=== PATIENT | male | born 1950 | race Caucasian/White ===

== ENCOUNTER 2022-03-11 02:21 | Emergency (ER) | payer MEDICARE, SELFPAY ==
[2022-03-11 02:44] VITALS: BP 131/73; PULSE 86; TEMP 36.6; O2SAT 96; BMI 30.1
--- NOTE | 2022-03-11 03:14 | ED_ITS ---
HPI - Neck Pain/Injury General Chief Complaint: Neck Injury/Pain Stated Complaint: neck pain Time Seen by Provider: 03/11/22 03:03 History of Present Illness HPI Narrative: 71-year-old man here with recent cough and cold symptoms with intense coughing episodes. Now 3rd day of right-sided neck pain pretty severe at he shows at the occipital insertion. Seems to have begun is a little bit of twinge maybe it is just escalated from there. Has tried Tylenol without relief. Also various balm/creams. Hurts terribly to transition in try to get in or out of bed. No radiating symptoms. No difficulty swallowing. Just can not sleep now. Has been using hot/warm packs. 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 Related Data Home Medications Medication Instructions Recorded Confirmed allopurinol 300 mg tablet mg 03/11/22 amlodipine 5 mg tablet mg 03/11/22 losartan 100 mg tablet mg 03/11/22 Allergies Allergy/AdvReac Type Severity Reaction Status Date / Time No Known Drug Allergies Allergy Verified 03/11/22 02:49 Review of Systems Status of ROS: Reports: 6 or more systems reviewed and unremarkable except as noted in History and below PFSH PFS Social History Smoking Status: Never smoker Do you use any of these nicotine containing products: None Second hand tobacco smoke exposure: No How often do you have a drink containing alcohol: 4 or more times a week How many standard drinks containing alcohol do you have on a typical day: 5 or 6 How often do you have six or more drinks on one occasion: Weekly AUDIT-C Alcohol total score: 9 Non-prescribed substance use: denies use Exam Narrative: Exam Narrative: Pleasant. Mildly distressed in apparent discomfort. Smells of menthol. Hard of hearing. Generally tremulous. Rather restricted rotation to the right of his neck --clearly causes pain in this direction. Improved rotation to about 70? to the left. Good strength in upper extremities. Intact sensation. No stridor. No apparent difficulty swallowing. Sore to palpation particularly in the right paracervical musculature and increasingly so toward the occipital insertion. No midline tenderness. No deformity appreciated Const: Vital Signs, click to edit/add: Vital Signs - 24 hr 03/11/22 02:44 03/11/22 03:43 Temperature 97.9 F Pulse Rate [Left P ulse Oximeter] 86 89 Blood Pressure [Ri ght Upper Arm] 131/73 115/74 Pulse Oximetry 96 96 Oxygen Delivery Me thod Room Air Room Air Documenting provider has reviewed patient's vital signs: yes Course Course Hospital Course: Suspect osteoarthritic related inflammation resultant muscle spasm/pain. I did offer localized injection with bupivacaine which he accepted. Discussed risks and benefits. He decided to proceed. Cleansed the area with alcohol and injected into sites in the upper paracervical musculature 1 just below the occipital insertion another an inch and a half below that. Did start to have some improvement very shortly in rotation and decreased discomfort -- I expect this will improve further though admittedly likely a temporary solution. Also offered a soft collar which he declined. Vital Signs Vital signs: Initial Vital Signs Temperature 97.9 F 03/11/22 02:44 Temperature Source Temporal Artery Scan 03/11/22 02:44 Pulse Rate 86 03/11/22 02:44 Blood Pressure 131/73 03/11/22 02:44 Blood Pressure Mean 92 03/11/22 02:44 Blood Pressure Position Supine 03/11/22 02:44 Pulse Oximetry 96 03/11/22 02:44 Oxygen Delivery Method 03/11/22 02:44 Vital Signs Temperature 97.9 F 03/11/22 02:44 Pulse Rate 86 03/11/22 02:44 Blood Pressure 131/73 03/11/22 02:44 Pulse Oximetry 96 03/11/22 02:44 Oxygen Delivery Method 03/11/22 02:44 Temperature 97.9 F 03/11/22 02:44 Pulse Rate 89 03/11/22 03:43 Blood Pressure 115/74 03/11/22 03:43 Pulse Oximetry 96 03/11/22 03:43 Oxygen Delivery Method 03/11/22 03:43 Discharge Plan Discharge Clinical Impression: Cervicalgia Patient Disposition: Home w/ Parent or Adult Condition: Improved Additional Instructions: Using some sort of supportive role around your neck can be helpful. Might try gentle pull-down stretching of your neck. Consider making appointment to have care by physical therapy or maybe a chiropractor though would avoid large cracking or manipulation of your neck. You may consider an appointment with a doctor of osteopathy, . [facility] has 2 of them who last I heard do manipulation as well; doctors Judy and Baljit. Temporarily and maybe with a little food can take up to 800 mg of ibuprofen per dose or alternatively up to 500 mg of naproxen 2 times daily. Either may be combined with any of the medications I prescribed today. [place], prednisone, Flexeril from [facility]. I would take 2 tabs of [place] with this 1st dosing and combine that with ibuprofen Take the prednisone as 60 mg daily for 2 days then 40 mg daily for 4 days then 20 mg daily for 3 days. (I also recommended addition of cold packs given newness of injury) Prescriptions: No Action amlodipine 5 mg tablet Label Comments: TAKE 1 TABLET (5 MG) BY MOUTH ONCE DAILY. allopurinol 300 mg tablet Label Comments: TAKE ONE TABLET BY MOUTH EVERY OTHER DAY losartan 100 mg tablet Label Comments: TAKE 1 TABLET (100 MG) BY MOUTH ONCE DAILY. Follow Up/Referrals: Micheal Kelly MD [Primary Care Provider] - Stand Alone Forms: [employer] Info Instructions
[2022-03-11] MEDS: BUPIVACAINE 0.25% 30 ML INJECTION (03:24)
--- OUTSIDE RECORDS SUMMARY | 2022-03-11 03:39 | XMS_ITS | Clinical Summary ---
:1950 Author Organization [facility] [place] [address] Care Team Providers Name Role Phone Micheal Kelly MD Primary Care Provider [phone] Allergies Active Allergy Reactions Severity Noted Date Comments Indomethacin Dizziness 09/25/2011 Medications Medication Sig Dispensed Refills Start Date End Date Status allopurinoL (ZYLOPRIM) Take 1 Tablet 45 Tablet 3 01/02/2022 Active 300 mg (300 mg) by tabletIndications: mouth every 48 Idiopathic gout, hours. unspecified chronicity, unspecified site amLODIPine (NORVASC) 5 Take 1 Tablet 90 Tablet 3 01/02/2022 Active mg tabletIndications: (5 mg) by Essential hypertension mouth once daily. losartan (COZAAR) 100 Take 1 Tablet 90 Tablet 3 01/02/2022 Active mg tabletIndications: (100 mg) by Essential hypertension mouth once daily. melatonin 5 mg Chew by mouth 0 01/02/2022 Active chewIndications: Other at bedtime if insomnia needed (insomnia). bismuth subsalicylate Chew 2 Tablets 0 01/02/2022 Active 262 mg chewable by mouth every (Pepto-BismoL) 262 mg 6 hours if chewable needed tabletIndications: (reflux). Gastroesophageal reflux disease, unspecified whether esophagitis present azithromycin (Zithromax Two tablets 6 Tablet 0 03/05/202210/2021 Z-Feliciano) 250 mg the first day, tabletIndications: one daily days Acute cough 2-5 Active Problems Problem Noted Date Fatty liver 01/02/2022 Mixed hyperlipidemia 01/02/2022 Idiopathic gout 01/01/2021 Premature atrial contractions 01/01/2021 Rotator cuff syndrome, right 02/09/2020 Overview: February 2020: MRI showing RC high grade Tear and other findings. Trying physical therapy. Did subacromial bursa injection. Abnormal liver enzymes 09/29/2019 Fever of unknown origin 01/08/2013 Obesity, Unspecified 02/03/2008 Right tib-fib fracture in 78' and Osteoarthrosis 10/20 History of gout 12/04/1999 Esophageal reflux Essential hypertension Resolved Problems Problem Noted Date Resolved Date Fatty liver 09/29/2019 01/02/2022 Chronic osteomyelitis of right tibia 08/09/201505/2021 Overview: 2014 Encounters Date Type Specialty Care Team Description 03/05/2022 Office Visit Dayne Dang, Cough (Congested, fatigue, chest tightness , ear discomfort, x 1 week) 03/05/2022 Travel 01/03/2022 Telephone Micheal Kelly Resul ts MD 01/02/2022 Office Visit Micheal Kelly, Medic are ANNUAL MD (subsequent) Vi sit 01/02/2022 Travel from Last 3 Months Immunizations Name Administration Dates Next Due COVID-19 vaccine (Moderna 100mcg/0.5mL) 03/07/2021 PF, MDV Influenza, High-dose Quadrivalent 02/08/2022, 01/30/2021, Inactivated Influenza, IIV3 (Age >=3 years) 03/03/1992 Influenza, Inactivated IIV3 (Age 65+ 01/18/2020 Years) Preserv Free Pneumococcal Poly,23-Valent (Pneumovax) 01/01/2021, 02/27/19 93 Pneumococcal conj 13-Valent (Prevnar 13) 12/30/2017 Tdap 01/17/2020, 12/13/2009 Zoster (Shingrix-RZV, recombinant) 06/26/2018, 12/30/2017 Zoster (Zostavax-ZVL, live) 11/28/2016 Family History Medical History Relation Name Comments Other Brother Crohn's Cancer-prostate Father Good Health Mother b 1930 Heart Disease Paternal Grandfather Thyroid Disease Sister Thyroidectomy Relation Name Status Comments Brother Father Alive Mother Alive Paternal Grandfather Sister Social History Tobacco Use Types Packs/Day Years Used Date Former Smoker Quit: 05/05/18 87 Smokeless Tobacco: Never Used Tobacco Cessation: Counseling Given: Yes Comments: quit smoking 28 years ago Alcohol Use Standard Drinks/Week Comments Not Currently 2.5 (1 standard drink = 0.6 oz pure drin ks 5 shots of liquor daily alcohol) Alcohol Habits Answer Date Recorded How often do you have a drink containing 4 or more times a w tangirnaq 09/20/2019 alcohol? How many drinks containing alcohol do 5 or 6 you have on a typical day when you are drinking? How often do you have six or more drinks Not asked on one occasion? Comment: drinks 5 shots of liquor daily 3 Sex Assigned at Date Recorded Not on file COVID-19 Exposure Response Date Recorded In the last 10 days, have you been in contact with No / Unsu re 03/05/2022 8:14 AM CDT someone who was confirmed or suspected to have Coronavirus/COVID-19? Obstetrics History Last Filed Vital Signs Vital Sign Reading Time Taken Comments Blood Pressure 92/63 03/05/2022 8:23 AM CDT Pulse 98 03/05/2022 8:23 AM CDT Temperature 36.8 ??C (98.3 ??F) 03/05/2022 8:23 AM CDT Respiratory Rate 16 11/07/2015 4:00 PM CDT Oxygen Saturation 99% 03/05/2022 8:23 AM CDT Inhaled Oxygen Concentration - - Weight 92.7 kg (204 lb 6.4 oz) 03/05/2022 8:23 AM CDT Height 177.8 cm (5' 10) 03/05/2022 8:23 AM CDT Body Mass Index 29.33 03/05/2022 8:23 AM CDT Plan of Treatment Upcoming Encounters Date Type Specialty Care Team Description 03/12/2022 Office Visit Siddhartha Prasad MD [address] [place], [place] [address] (Wo rk) Health Maintenance Due Date Last Done Comments Colonoscopy through age 75 1997 AAA screening age 55-77 10/28/2007 Medicare Wellness for age 65+ 01/02/2023 01/02/2022, 2020 BMI (ht and wt on same day) for 03/05/2023 03/05/2022, 12/05, age 18+ 01/26/2020, Additional history exists Depression screening for age 12+ 03/05/2023 03/05/2022, 05/2021, 01/02/2022, Additional history exists Lipids for age 45-75 01/02/2027 01/02/2022, 01/02/2022, 12/30/2017, Additional history exists Tetanus booster 01/16/2030 01/17/2020, 12/13/2009 Zoster (shingles) series for age Completed 06/26/2018, , 50+ 11/28/2016 Hepatitis C screening for age Completed 09/29/2019 18-79 Tdap Completed 01/17/2020, 12/13/2009 Pneumococcal series for age 65+ Completed 01/01/2021, 12/04, 02/27/1993 COVID-19 vaccine series Completed 02/08/2022, 03/07/2021, 08/09/2020, Additional history exists Influenza for age 65+ Completed 02/08/2022, 01/30/2021, 01/18/2020, Additional history exists Procedures Procedure Name Priority Date/Time Associated Diagnosis Comme nts VITAMIN B12 Routine 03/05/2022 9:37 AM Tremor Results f or this CDT procedure are i n the results section. COMP METABOLIC Routine 03/05/2022 9:37 AM Tremor Results for this PANEL CDT procedure are i n the results section. CBC W PLT NO DIFF Routine 03/05/2022 9:37 AM Tremor Resu lts for this CDT procedure are i n the results section. LDL Routine 01/02/2022 10:05 Mixed hyperlipidemia Res ults for this CHOLESTEROL,DIRECT AM CDT procedure are in the results section. LIPID PANEL W Routine 01/02/2022 10:05 Mixed hyperlipidemia Re sults for this REFLEX MEASURED AM CDT procedure ar e in LDL the results section. PSA TOTAL SCREEN Routine 01/02/2022 10:05 Screening PSA (prost ate Results for this AM CDT specific antigen) procedure are in the results section. GAMMA GT Routine 01/02/2022 10:05 Fatty liver Results for this AM CDT procedure are i n the results section. HEPATIC FUNCTION Routine 01/02/2022 10:05 Fatty liver Results for this PANEL AM CDT procedure are i n the results section. CBC W PLT NO DIFF Routine 01/02/2022 10:05 Idiopathic gout, Re sults for this AM CDT unspecified chronicity, proc edure are in unspecified site the results section. URIC ACID Routine 01/02/2022 10:05 Idiopathic gout, Results for this AM CDT unspecified chronicity, proc edure are in unspecified site the results section. BASIC METABOLIC Routine 01/02/2022 10:05 Essential hypertensio n Results for this PANEL AM CDT procedure are i n the results section. from Last 3 Months Results (ABNORMAL) CBC W PLT NO DIFF (03/05/2022 9:37 AM CDT)Only the most recent of2 resultswithin the time period is included. [facility] Method Time Signature WHITE BLOOD 6.3 4.5 - 11.0 03/05/2022 [facility] COUNT thou/cu mm 9:41 AM [facility] RED BLOOD COUNT 3.66 (L) 4.30 - 03/05/2022 [facility] 5.90 9:41 AM [facility] mil/cu mm CLINIC HEMOGLOBIN 13.3 (L) 13.5 - 03/05/2022 [facility] 17.5 g/dL 9:41 AM [facility] HEMATOCRIT 37.7 37.0 - 03/05/2022 [facility] 53.0 % 9:41 AM [facility] MCV 103 (H) 80 - 100 03/05/2022 [facility] fL 9:41 AM [facility] MCH 36.3 (H) 26.0 - 03/05/2022 [facility] 34.0 pg 9:41 AM [facility] MCHC 35.3 32.0 - 03/05/2022 [facility] 36.0 g/dL 9:41 AM [facility] RDW 12.9 11.5 - 03/05/2022 [facility] 15.5 % 9:41 AM [facility] PLATELET COUNT 182 140 - 440 03/05/2022 [facility] thou/cu mm 9:41 AM [facility] MPV 11.6 (H) 6.5 - 11.0 03/05/2022 [facility] fL 9:41 AM CDT [facility] Specimen Anatomical Collection Method / Collection Time Recei griselda Time (Source) Location / Volume Laterality Blood BLOOD SPECIMEN / Venipuncture / 03/05/2022 9:37 2021 9:37 Unknown Unknown AM CDT AM CDT Dayne Dang MD HEMATOLOGY Performing Organization Address City/State/ZIP Code Phon e Number [facility] [address] [place] [address] (ABNORMAL) VITAMIN B12 (03/05/2022 9:37 AM CDT) P athologist Signature VITAMIN B12 >1500 (H) 180 - 914 03/06/2022 [facility] pg/mL 11:03 AM CDT LABORATORY-[facility] TRAL LABORATORY Specimen Anatomical Collection Method / Collection Time Recei griselda Time (Source) Location / Volume Laterality Blood BLOOD SPECIMEN / Venipuncture / 03/05/2022 9:37 2021 9:37 Unknown Unknown AM CDT AM CDT Dayne Dang MD CHEMISTRY Performing Organization Address City/State/ZIP Code Phon e Number [email or web address] [address] [place] [address] LABORATORY-CENTRAL 2000 LABORATORY (ABNORMAL) COMP METABOLIC PANEL (03/05/2022 9:37 AM CDT) [facility] gist Method Time Signature SODIUM 147 (H) 135 - 145 03/05/2022 [facility] mmol/L 9:56 PM CDT LABORATORY-[facility] TRAL LABORATORY POTASSIUM 4.6 3.5 - 5.0 03/05/2022 [facility] mmol/L 9:56 PM CDT [facility] TRAL LABORATORY CHLORIDE 103 98 - 110 03/05/2022 [facility] mmol/L 9:56 PM CDT [facility]AT[facility] TRAL LABORATORY CO2,TOTAL 29 21 - 31 03/05/2022 [facility] mmol/L 9:56 PM CDT [facility]AT[facility] TRAL LABORATORY ANION GAP 15 5 - 18 03/05/2022 [facility] 9:56 PM CDT [facility] TRAL LABORATORY GLUCOSE 160 (H) 65 - 100 03/05/2022 [facility] mg/dL 9:56 PM CDT [facility]AT[facility] TRAL LABORATORY CALCIUM 7.7 (L) 8.5 - 03/05/2022 [facility] 10.5 9:56 PM CDT LABORATORY-[facility] mg/dL TRAL LABORATORY BUN 22 8 - 25 03/05/2022 [facility] mg/dL 9:56 PM CDT [facility] TRAL LABORATORY CREATININE 2.34 (H) 0.72 - 03/05/2022 [facility] 1.25 9:56 PM CDT LABORATORY-[facility] mg/dL TRAL LABORATORY BUN/CREAT RATIO 9 (L) 10 - 20 03/05/2022 [facility] 9:56 PM CDT LAB[facility]ATORY-[facility] TRAL LABORATORY ALBUMIN 3.3 3.2 - 4.6 03/05/2022 [facility] g/dL 9:56 PM CDT LABORATORY-[facility] TRAL LABORATORY PROTEIN,TOTAL 5.9 (L) 6.0 - 8.0 03/05/2022 [facility] g/dL 9:56 PM CDT [facility]AT[facility] TRAL LABORATORY GLOBULIN 2.6 2.0 - 3.7 03/05/2022 [facility] g/dL 9:56 PM CDT [facility] TRAL LABORATORY A/G RATIO 1.3 1.0 - 2.0 03/05/2022 [facility] 9:56 PM CDT LAB[facility]AT[facility] TRAL LABORATORY BILIRUBIN,TOTAL 1.0 0.2 - 1.2 03/05/2022 [facility] mg/dL 9:56 PM CDT LAB[facility]AT[facility] TRAL LABORATORY ALK PHOSPHATASE 172 (H) 50 - 136 03/05/2022 [facility] IU/L 9:56 PM CDT [facility] TRAL LABORATORY ALT (SGPT) 67 (H) 8 - 45 03/05/2022 [facility] IU/L 9:56 PM CDT [facility] TRAL LABORATORY AST (SGOT) 112 (H) 2 - 40 03/05/2022 [facility] IU/L 9:56 PM CDT LAB[facility]AT[facility] TRAL LABORATORY eGFR 29 (L) >90 03/05/2022 [facility] mL/min/1. 9:56 PM CDT LABORATORY-[facility] 73m2 TRAL LABORATORY Comment: As of 2021, eGFR is calcu lated by the CKD-EPI creatinine equation without race adjustment. eGFR can be inf luenced by muscle mass, exercise, and diet. The reported eGFR is an estimation only and is only applicable if the renal function is stable. Specimen Anatomical Collection Method / Collection Time Recei griselda Time (Source) Location / Volume Laterality Blood BLOOD SPECIMEN / Venipuncture / 03/05/2022 9:37 2021 9:37 Unknown Unknown AM CDT AM CDT Dayne Dang MD CHEMISTRY Performing Organization Address City/State/[facility] Code Phon e Number [email or web address] [address] [place] [address] LABORATORY-CENTRAL 2000 LABORATORY (ABNORMAL) LIPID PANEL W REFLEX MEASURED LDL (01/02/2022 10:05 AM CDT) [facility] Method Time Signature CHOLESTEROL,TOTAL 233 (H) 100 - 199 01/02/2022 [facility] mg/dL 6:38 PM CDT LABORATORY-[facility] TRAL LABORATORY TRIGLYCERIDES 427 (H) <150 01/02/2022 [facility] mg/dL 6:38 PM CDT LABORATORY-[facility] TRAL LABORATORY HDL CHOLESTEROL 46 >40 mg/dL 01/02/2022 [facility] 6:38 PM CDT LAB[facility]AT[facility] TRAL LABORATORY NON-HDL 187 (H) <145 01/02/2022 [facility] CHOLESTEROL mg/dl 6:38 PM CDT [facility]AT[facility] TRAL LABORATORY CHOL/HDL RATIO 5.07 (H) <4.50 01/02/2022 [facility] 6:38 PM CDT [facility]AT[facility] TRAL LABORATORY LDL CHOLESTEROL 01/02/2022 [facility] 6:38 PM CDT [facility] TRAL LABORATORY Comment: Invalid LDL when Trig >400, ref lexed to measured LDL VLDL CHOLESTEROL COMMENT 01/02/2022 6:38 PM CDT [facility] Comment: Unable to calculate VLDL. PROVIDER ORDERED RANDOM 01/02/2022 6:38 PM CDT [facility] LABORATORY-CENTRAL L ABORATORY Specimen Anatomical Collection Method / Collection Time Recei griselda Time (Source) Location / Volume Laterality Blood BLOOD SPECIMEN / Venipuncture / 01/02/2022 10:05 01/02 Unknown Unknown AM CDT 10:06 AM CDT Micheal Kelly MD CHEMISTRY Performing Organization Address City/[facility] Phon e Number [email or web address] [address] [place] [address] LABORATORY-CENTRAL 2000 LABORATORY URIC ACID (01/02/2022 10:05 AM CDT) athologist Signature URIC ACID 3.7 3.5 - 7.2 01/02/2022 [facility] mg/dL 6:38 PM CDT LABORATORY-CENTR AL LABORATORY Specimen Anatomical Collection Method / Collection Time Recei griselda Time (Source) Location / Volume Laterality Blood BLOOD SPECIMEN / Venipuncture / 01/02/2022 10:05 01/02 Unknown Unknown AM CDT 10:06 AM CDT Micheal Kelly MD CHEMISTRY Performing Organization Address City/[facility] Phon e Number [facility] [address] [facility] [place] [address] LABORATORY-CENTRAL 2000 LABORATORY LDL CHOLESTEROL,DIRECT (01/02/2022 10:05 AM CDT) athologist Signature LDL 106 mg/dL 01/02/2022 [facility] CHOLESTEROL,DI 7:08 PM CDT LABORATORY-CE NT RECT RAL LABORATORY PROVIDER RANDOM 01/02/2022 [facility] ORDERED STATUS 7:08 PM CDT LABORATORY-CE NT RAL LABORATORY Specimen Anatomical Collection Method / Collection Time Recei griselda Time (Source) Location / Volume Laterality Blood BLOOD SPECIMEN / Venipuncture / 01/02/2022 10:05 01/02 Unknown Unknown AM CDT 10:06 AM CDT Narrative [facility] LABORATORY-CENTRAL LABORAT ORY - 01/02/2022 7:08 PM CDT ?RISK CATEGORY LDL GOAL ?(mg/dL) ? Vascular disease and/or diabetes (<100) Multiple (2+) risk factors ? (<13 0) 0-1 risk factor ?(<160) Micheal Kelly MD CHEMISTRY Performing Organization Address City/[facility] Code Phon e Number [facility] [address] [facility] [place] [address] LABORATORY-CENTRAL 1999 LABORATORY (ABNORMAL) GAMMA GT (01/02/2022 10:05 AM CDT) P athologist Signature GAMMA GT 1,239 (H) 12 - 64 01/02/2022 [facility] IU/L 6:50 PM CDT LABORATORY-CENT RAL LABORATORY Specimen Anatomical Collection Method / Collection Time Recei griselda Time (Source) Location / Volume Laterality Blood BLOOD SPECIMEN / Venipuncture / 01/02/2022 10:05 01/02 Unknown Unknown AM CDT 10:06 AM CDT Micheal Kelly MD CHEMISTRY Performing Organization Address City/State/ZIP Code Phon e Number [facility] [address] [place] [address] LABORATORY-CENTRAL 2000 LABORATORY (ABNORMAL) LIVER PANEL (HEPATIC FUNCTION PANEL) (01/02/2022 10:05 AM CDT) [facility] Method Time Signature ALBUMIN 3.8 3.2 - 4.6 01/02/2022 [facility] g/dL 6:38 PM CDT LABORATORY-[facility] TRAL LABORATORY PROTEIN,TOTAL 6.3 6.0 - 8.0 01/02/2022 [facility] g/dL 6:38 PM CDT LAB[facility]AT[facility] TRAL LABORATORY GLOBULIN 2.5 2.0 - 3.7 01/02/2022 [facility] g/dL 6:38 PM CDT LABORATORY-[facility] TRAL LABORATORY A/G RATIO 1.5 1.0 - 2.0 01/02/2022 [facility] 6:38 PM CDT LAB[facility]AT[facility] TRAL LABORATORY BILIRUBIN,TOTAL 0.8 0.2 - 1.2 01/02/2022 [facility] mg/dL 6:38 PM CDT LABORATORY-[facility] TRAL LABORATORY BILIRUBIN,DIRECT 0.4 0.1 - 0.5 01/02/2022 [facility] mg/dL 6:38 PM CDT LABORATORY-[facility] TRAL LABORATORY BILIRUBIN,INDIRE 0.4 0.2 - 0.8 01/02/[address] [facility] [address] mg/dL 6:38 PM CDT LABORATORY-[facility] TRAL LABORATORY ALK PHOSPHATASE 210 (H) 50 - 136 01/02/2022 [facility] IU/L 6:38 PM CDT [facility] TRAL LABORATORY ALT (SGPT) 67 (H) 8 - 45 01/02/2022 [facility] IU/L 6:38 PM CDT [facility] TRAL LABORATORY AST (SGOT) 109 (H) 2 - 40 01/02/2022 [facility] IU/L 6:38 PM CDT [facility] TRAL LABORATORY Specimen Anatomical Collection Method / Collection Time Recei griselda Time (Source) Location / Volume Laterality Blood BLOOD SPECIMEN / Venipuncture / 01/02/2022 10:05 01/02 Unknown Unknown AM CDT 10:06 AM CDT Micheal Kelly MD CHEMISTRY Performing Organization Address City/State/ZIP Code Phon e Number [facility] [address] [place] [address] LABORATORY-CENTRAL 2000 LABORATORY (ABNORMAL) BASIC METABOLIC PANEL (01/02/2022 10:05 AM CDT) Analysis Performed At Patho logist Time Signature SODIUM 140 135 - 145 01/02/2022 [facility] mmol/L 6:37 PM CDT LABORATORY-[facility] TRAL LABORATORY POTASSIUM 4.7 3.5 - 5.0 01/02/2022 [facility] mmol/L 6:37 PM CDT LABORAT[facility] TRAL LABORATORY CHLORIDE 104 98 - 110 01/02/2022 [facility] mmol/L 6:37 PM CDT LAB[facility]AT[facility] TRAL LABORATORY CO2,TOTAL 27 21 - 31 01/02/2022 [facility] mmol/L 6:37 PM CDT LABORATORY-[facility] TRAL LABORATORY ANION GAP 9 5 - 18 01/02/2022 [facility] 6:37 PM CDT LABORAT[facility] TRAL LABORATORY GLUCOSE 116 (H) 65 - 100 01/02/2022 [facility] mg/dL 6:37 PM CDT LABORATORY-[facility] TRAL LABORATORY CALCIUM 9.1 8.5 - 10.5 01/02/2022 [facility] mg/dL 6:37 PM CDT LABORAT[facility] TRAL LABORATORY BUN 10 8 - 25 01/02/2022 [facility] mg/dL 6:37 PM CDT LABORATORY-[facility] TRAL LABORATORY CREATININE 0.88 0.72 - 01/02/2022 [facility] 1.25 mg/dL 6:37 PM CDT LABORATORY-[facility] TRAL LABORATORY BUN/CREAT RATIO 11 10 - 20 01/02/2022 [facility] 6:37 PM CDT LABORATORY-[facility] TRAL LABORATORY eGFR >90 >90 01/02/2022 [facility] mL/min/1.7 6:37 PM CDT LABORATORY-[facility]HL[facility] 3m2 TRAL LABORATORY Comment: As of 2021, eGFR is calcu lated by the CKD-EPI creatinine equation without race adjustment. eGFR can be inf luenced by muscle mass, exercise, and diet. The reported eGFR is an estimation only and is only applicable if the renal function is stable. Specimen Anatomical Collection Method / Collection Time Recei griselda Time (Source) Location / Volume Laterality Blood BLOOD SPECIMEN / Venipuncture / 01/02/2022 10:05 01/02 Unknown Unknown AM CDT 10:06 AM CDT Micheal Kelly MD CHEMISTRY Performing Organization Address City/[facility] Code Phon e Number [facility] [address] [place] [id number] LABORATORY-CENTRAL 2000 LABORATORY PSA TOTAL SCREEN (01/02/2022 10:05 AM CDT) athologist Signature PSA TOTAL 0.33 <4.00 01/02/2022 [facility] (SCREEN) ng/mL 7:03 PM CDT LAB[facility]ATORY-[facility] LABOR[facility] Specimen Anatomical Collection Method / Collection Time Recei griselda Time (Source) Location / Volume Laterality Blood BLOOD SPECIMEN / Venipuncture / 01/02/2022 10:05 01/02 Unknown Unknown AM CDT 10:06 AM CDT Narrative [facility] LABORATORY-CENTRAL LABORAT ORY - 01/02/2022 7:03 PM CDT [address] [place] [address] [employer] PSA assay is a Chemiluminescent Microparticle Immunoassay(CMIA). Assay values ob tained with different assay methods rolanda ot be used interchangeably due to differences in assay methods and reagent specificity. Micheal Kelly MD LABORATORY Performing Organization Address City/[facility] Phon e Number [facility] [address] [place] [id number] LABORATORY-CENTRAL 2000 LABORATORY from Last 3 Months Insurance Payer Benefit Plan / Subscriber ID Effective Dates Phone Addre ss Type Group [facility] MR [id number] 2019-Present [address] [address] [place] [address] Advance Directives Latest Code Status on File Code Status Date Activated Date Inactivated Comments Full Code 11/07/2015 1:14 PM 11/07/2015 6:24 PM Full Code 11/07/2015 9:52 AM 11/07/2015 1:14 PM Code Status Discussion: Not Discussed Full Code 01/08/2013 7:32 PM 01/11/2013 8:15 PM Care Teams Cotton Chopper Relationship Specialty Start Date End Date Micheal Kelly MD PCP - General Family Practice 11/27/20 [address] [facility] [place] [address]
[2022-03-11 03:43] VITALS: BP 115/74; PULSE 89; O2SAT 96
== END 2022-03-11 03:45 | disposition home or self-care (01) ==
LOC: ED 03:37
PROVIDERS: Emergency Provider Family Medicine; PCP Family Medicine
DX: M54.2 Cervicalgia (principal)
CPT/HCPCS: 96372; 99283; J3490